=== PATIENT | male | born 1980 | race Caucasian/White ===

== ENCOUNTER 2017-06-22 11:28 | Emergency (ER) | payer OTHER ==
--- NOTE | 2017-06-22 12:17 | ERPHSYRPT ---
- History of Present Illness Time Seen by Provider: 06/22/17 12:08 Source: patient Exam Limitations: no limitations Patient Subjective Stated Complaint: Pt states yesterday he kind of got choked while eating and now he still feels like he has something stuck in his throat. When he swollows he feels it and then he pukes, "like it wont go down because its blocked" Triage Nursing Assessment: Pt alert and oriented x3. skin pink warm and dry. afebrile. bowel sounds present x4. abdomen soft, and tender with palpation in the upper quad Physician History: The patient is a 36-year-old male complaining of the feeling like a piece of his food from yesterday is stuck in his throat. He has poor dentition and doesn 't chew his food thoroughly. He was in a hurry yesterday when eating pork. About mid afternoon around 3 or 4 PM he thinks a piece of pork is stuck somewhere in his esophagus. Since that time when he drinks, within 30 seconds he regurgitates all of his fluid. He hasn't been able to eat anything. He hasn 't taken his medicines today. He denies shortness of breath. His past medical history is significant for depression and likely bipolar disorder. Timing/Duration: abrupt onset Severity: moderate ENT Location: throat (foreign body ) Prearrival Treatment: no prearrival treatment Associated Symptoms: poor fluid intake, difficulty swallowing Allergies/Adverse Reactions: No Known Drug Allergies Allergy (Unverified 06/22/17 11:55) Home Medications: Atenolol 50 mg PO DAILY 06/15/14 [History] Bupropion HCl [Wellbutrin] 150 mg PO BID 06/15/14 [History] Fluoxetine HCl [Prozac] 20 mg PO DAILY 06/15/14 [History] Lisdexamfetamine Dimesylate [Vyvanse] 70 mg PO DAILY 06/15/14 [History] Testosterone [Androgel] 2 puff IH DAILY 06/15/14 [History] Hx Tetanus, Diphtheria Vaccination/Date Given: Yes Hx Influenza Vaccination/Date Given: No Hx Pneumococcal Vaccination/Date Given: No - Review of Systems Constitutional: No Fever, No Chills Eyes: No Symptoms Ears, Nose, & Throat: Other (difficulty swallowing) Respiratory: No Cough, No Dyspnea Cardiac: No Chest Pain, No Edema, No Syncope Abdominal/Gastrointestinal: Other (regurgitation) Genitourinary Symptoms: No Dysuria Musculoskeletal: No Back Pain, No Neck Pain Skin: No Rash Neurological: No Dizziness, No Focal Weakness, No Sensory Changes Psychological: No Symptoms Endocrine: No Symptoms Hematologic/Lymphatic: No Symptoms Immunological/Allergic: No Symptoms All Other Systems: Reviewed and Negative - Past Medical History Pertinent Past Medical History: Yes Neurological History: Seizures ENT History: No Pertinent History Cardiac History: Hypertension Respiratory History: No Pertinent History Endocrine Medical History: No Pertinent History Musculoskeletal History: No Pertinent History GI Medical History: No Pertinent History History: No Pertinent History Psycho-Social History: Anxiety, Attention Deficit Disorder, Depression Male Reproductive Disorders: No Pertinent History Other Medical History: LOW TESTERONE - Past Surgical History Past Surgical History: Yes Neuro Surgical History: No Pertinent History Cardiac: No Pertinent History Respiratory: No Pertinent History Gastrointestinal: No Pertinent History Genitourinary: No Pertinent History Musculoskeletal: No Pertinent History Male Surgical History: No Pertinent History Other Surgical History: ABCESS REMOVED - Social History Smoking Status: Former smoker Exposure to second hand smoke: No Drug Use: none Patient Lives Alone: No - Nursing Vital Signs Nursing Vital Signs: Initial Vital Signs Temperature 97.6 F 06/22/17 11:57 Pulse Rate 107 H 06/22/17 11:57 Respiratory Rate 16 06/22/17 11:57 Blood Pressure 140/90 06/22/17 11:57 O2 Sat by Pulse Oximetry 97 06/22/17 11:57 Pain Scale Pain Intensity 0 - Physical Exam General Appearance: no apparent distress, alert Eye Exam: bilateral eye: PERRL, EOMI Ear Exam: bilateral ear: auricle normal Nasal Exam: normal inspection Throat Exam: pharynx normal, moist mucus membranes, No tonsillar exudate Neck Exam: supple Cardiovascular/Respiratory Exam: normal breath sounds, regular rate/rhythm Abdominal Exam: non-tender, soft Neurologic Exam: alert, oriented x 3, sensation nml, No motor deficits Skin Exam: normal color, warm, dry SpO2 Interpretation: normal SpO2: 97 Oxygen Delivery: Room Air - Radiology Exams Other X-ray Interpretation: Negative (neg soft tissue neck per Dr Lanier) Ordered Tests: Active Orders 24 hr Category Date Time Status IV Insertion STAT Care 06/22/17 12:20 Active NECK SOFT TISSUE Stat Exams 06/22/17 12:33 Completed Medication Summary Discontinued Medications Generic Name Dose Route Start Last Admin Trade Name Marian PRN Reason Stop Dose Admin Glucagon 1 mg 06/22/17 12:21 06/22/17 12:40 Glucagen 1 Mg IV 06/22/17 12:22 1 mg STAT ONE Administration Glucagon Confirm 06/22/17 12:30 Glucagen 1 Mg Administered 06/22/17 12:31 Dose 1 mg .ROUTE .STK-MED ONE - Progress Progress: improved Progress Note: 06/22/17 13:33 After glucagon 1 mg IV, the patient was able to consume a 6 ounce soft drink and crackers without problems. Counseled pt/family regarding: diagnosis - Departure Time of Disposition: 13:34 Departure Disposition: Home Clinical Impression: Esophageal foreign body Condition: Stable Critical Care Time: No Referrals: MICHAEL MOLINA MD [Primary Care Provider] - Additional Instructions: You had an esophageal foreign body that was relieved with glucagon 1 mg by IV in the ER. Try to prevent another food bolus getting stuck in your esophagus by chewing your food thoroughly.
[2017-06-22] MEDS ORDERED: GlucaGen 1 MG IV ONE (12:21)
[2017-06-22] MEDS ORDERED: GlucaGen 1 MG ONE (12:30)
--- NOTE | 2017-06-22 12:44 | XRAY ---
Indication: Foreign body. Vomiting. Comparison: None AP/lateral neck obtained with special attention to the soft tissues negative for radiopaque foreign body.. Supra-and infraglottic airway are patent. Normal epiglottis and cervical spine. Impression: Negative soft tissue neck.
[2017-06-22 13:58] VITALS: BP 142/106; PULSE 95; O2SAT 98
== END 2017-06-22 13:57 | disposition home or self-care (01) ==
LOC: ED 11:28
DX: T18.108A Unspecified foreign body in esophagus causing other injury, initial encounter (principal)
CPT/HCPCS: 36000; 70360; 96374; 99284; J1610

== ENCOUNTER 2020-01-24 22:27 | Observation (INO) | payer OTHER ==
[2020-01-24 23:18] LABS: Absolute Neutrophil Ct (ANC) 7.21 (1.4-6.9); BASOPHIL % 0.3 % (0.0-0.4); Basophil (Absolute #) 0.04 (0-0.4); Eosinophil % 3.5 % (0.00-5.0); Eosinophil (Absolute #) 0.46 (0-0.5); Hematocrit 51.3 % (42-50); Hemoglobin 17.6 gm/dl (12.5-18.0); Lymphocyte (Absolute #) 4.27 (1.0-4.6); Lymphocytes % 32.3 % (24.0-44.0); Mean Cell Volume 95.4 fl (78-100); Mean Corpuscular Hemoglobin 32.7 pg (26-32); Mean Corpuscular Hgb Concent. 34.3 g/dl (32-36); Mean Platelet Volume 10.2 fl (7.5-11.0); Monocyte (Absolute #) 1.26 (0.0-1.3); Monocytes % 9.5 % (0.0-12.0); Neutrophil % 54.4 % (36.0-66.0); Platelet Count 268 K/mm3 (150-450); Red Blood Count 5.38 M/mm3 (4.1-5.6); Red Cell Distribution Width 12.5 % (11.5-14.0); White Blood Count 13.2 K/mm3 (4.0-10.5)
[2020-01-24 23:21] LABS: Appearance CLEAR (CLEAR); Bilirubin NEGATIVE (NEGATIVE); Blood NEGATIVE Ery/ul (0-5); Glucose NEGATIVE (NEGATIVE); Ketones NEGATIVE (NEGATIVE); Leukocyte Esterase NEGATIVE (NEGATIVE); Mucus SLIGHT /HPF (NEGATIVE); Nitrite NEGATIVE (NEGATIVE); Protein,Urine Dip NEGATIVE (Negative); RBC 0-2 /HPF (0-2); Specific Gravity 1.026 (1.005-1.025); Urobilinogen NEGATIVE mg/dL (0-1)
[2020-01-24 23:30] LABS: ALBUMIN 4.8 g/dL (3.5-5.0); ALKALINE PHOSPHATASE 68 U/L (38-126); ANION GAP 13.9 MEQ/L (5-15); BLOOD UREA NITROGEN 14 mg/dL (9-20); CHLORIDE 104 mmol/L (98-107); Carbon Dioxide 25 mmol/L (22-30); Creatinine 1 1.22 mg/dL (0.66-1.25); Glucose 103 mg/dL (74-106); Potassium 4.1 mmol/L (3.5-5.1); SGOT/AST 30 U/L (17-59); SGPT/ALT 52 U/L (0-50); SODIUM 139 mmol/L (137-145); Total Protein 8.1 g/dL (6.3-8.2)
[2020-01-24 23:31] LABS: ACETAMINOPHEN < 10 ug/ml (10-30); ETHYL ALCOHOL < 10 mg/dL (0-10)
[2020-01-24 23:33] LABS: Amphetamine,Urine POSITIVE (NEGATIVE); Barbiturate,Urine NEGATIVE (NEGATIVE); Benzodiazepine,Urine NEGATIVE (NEGATIVE); Cocaine,Urine NEGATIVE (NEGATIVE); Methadone,Urine NEGATIVE (NEGATIVE); Opiate,Urine NEGATIVE (NEGATIVE); PCP,Urine NEGATIVE (NEGATIVE); THC,Urine NEGATIVE (NEGATIVE)
--- NOTE | 2020-01-24 23:49 | ERPHSYRPT ---
- History of Present Illness Time Seen by Provider: 01/24/20 22:40 Source: patient, family Exam Limitations: no limitations Patient Subjective Stated Complaint: pt states that he took 5 adarrel yesterday and tody, pt states that he hears voices, pt states that he has had thoughts of harming in the past, pt states that he cant just take just 1, pt states that he wants to take all his pills because he is afraid they will take them away, pt states that he is to meet with [facility] because Dr. Molina referred him, father states that him and his usually keep the pills locked up, father states that pt found the pills, Triage Nursing Assessment: pt ambulated into the er, pt axo x3, pt is slow to respond, c/o taking to much adderrall, denies pain, denies suicial thoughts, states he hears voices, vitals wnl Physician History: 39 years old male with history of ADD, anxiety, depression, paranoia presented in the ER with father for Adderall overdose. Patient reports he has been taking more than prescribed amount of pills and has taken 5 earlier today because he does not think 1 is enough. He is also worried about the fact that someone will take away meds from him. Father reports they usually keep medications locked and somehow he managed to take them. He does have history of suicidal attempt in the remote past. Patient reported hearing voices and is paranoid about other people talking about him. Patient also reports having suicidal ideations off and on for quite some time but denies any specific plan. He denies any homicidal ideations. Patient report his sleep is not very well and recently he has been placed on Seroquel which seems to be helping. Patient is scheduled to see [facility] as he was referred by Dr. Molina. Timing/Duration: today, gradual onset Severity of Symptoms-Max: moderate Severity of Symptoms-Current: moderate Suicidal thoughts: ingestion Associated Symptoms: impaired concentration, paranoid, suicidal ideation Previous symptoms: same symptoms as today Allergies/Adverse Reactions: No Known Drug Allergies Allergy (Unverified 06/22/17 11:55) Home Medications: Atenolol 50 mg PO DAILY 06/15/14 [History] Dextroamphetamine/Amphetamine [Dextroamp-Amphet ER 20 mg Cap] 20 mg PO DAILY 01/24/20 [History] Phenytoin Sod Extended 100 mg* [Dilantin 100 MG] 200 mg PO BID 01/24/20 [History] Quetiapine Fumarate 50 mg PO HS 01/24/20 [History] Hx Tetanus, Diphtheria Vaccination/Date Given: Yes Hx Influenza Vaccination/Date Given: No Hx Pneumococcal Vaccination/Date Given: No Travel Risk - International Travel Have you traveled outside of the country in past 3 weeks: No - Coronavirus Screening Are you exhibiting any of the following symptoms?: No Close contact with a COVID-19 positive Pt in past 14-21 Days: No - Past Medical History Pertinent Past Medical History: Yes Neurological History: Seizures ENT History: No Pertinent History Cardiac History: Hypertension Respiratory History: No Pertinent History Endocrine Medical History: No Pertinent History Musculoskeletal History: No Pertinent History GI Medical History: No Pertinent History History: No Pertinent History Psycho-Social History: Anxiety, Attention Deficit Disorder, Depression Male Reproductive Disorders: No Pertinent History Other Medical History: LOW TESTERONE - Past Surgical History Past Surgical History: Yes Neuro Surgical History: No Pertinent History Cardiac: No Pertinent History Respiratory: No Pertinent History Gastrointestinal: No Pertinent History Genitourinary: No Pertinent History Musculoskeletal: No Pertinent History Male Surgical History: No Pertinent History Other Surgical History: ABCESS REMOVED - Social History Smoking Status: Former smoker Exposure to second hand smoke: No Drug Use: none Patient Lives Alone: No - Review of Systems Constitutional: No Symptoms Eyes: No Symptoms Ears, Nose, & Throat: No Symptoms Respiratory: No Symptoms Cardiac: No Symptoms Abdominal/Gastrointestinal: No Symptoms Genitourinary Symptoms: No Symptoms Musculoskeletal: No Symptoms Skin: No Symptoms Psychological: Anxiety, Depression, Suicidal Ideations, Emotional Lability, Hallucinations, Mood Changes, No Homicidal Ideations Endocrine: No Symptoms Hematologic/Lymphatic: No Symptoms Immunological/Allergic: No Symptoms - Nursing Vital Signs Nursing Vital Signs: Initial Vital Signs Temperature 98.1 F 01/24/20 22:51 Pulse Rate 88 01/24/20 22:51 Respiratory Rate 24 01/24/20 22:51 Blood Pressure 131/78 01/24/20 22:51 O2 Sat by Pulse Oximetry 97 01/24/20 22:51 Pain Scale Pain Intensity 0 - Physical Exam General Appearance: no apparent distress, alert, anxiety Eyes, Ears, Nose, Throat Exam: normal ENT inspection, pharynx normal Neck Exam: normal inspection, non-tender, supple, full range of motion Respiratory Exam: normal breath sounds, lungs clear Cardiovascular Exam: regular rate/rhythm, normal heart sounds, normal peripheral pulses Gastrointestinal/Abdominal Exam: soft, normal bowel sounds, No tenderness Extremities Exam: normal inspection Neurological Exam: alert, oriented x 3, flat Appearance: appropriate appearance, no memory impairment Behavior/Eye Contact/Speech: alert & cooperative, avoids eye contact Thoughts/Hallucinations: no apparent hallucination, paranoid Skin Exam: normal color SpO2 Interpretation: normal SpO2: 98 O2 Delivery: Room Air - Course Nursing assessment & vital signs reviewed: Yes EKG Interpreted by Me: RATE (99), Sinus Rhythm, NORMAL AXIS, NORMAL QRS Ordered Tests: Active Orders 24 hr Category Date Time Status EKG-ER Only STAT Care 01/24/20 23:00 Active ACETAMINOPHEN Stat Lab 01/24/20 22:50 Completed CBC W DIFF Stat Lab 01/24/20 22:50 Completed CMP Stat Lab 01/24/20 22:50 Completed ETHYL ALCOHOL Stat Lab 01/24/20 22:50 Completed SALICYLATE Stat Lab 01/24/20 22:50 Completed UA W/RFX UR CULTURE Stat Lab 01/24/20 22:50 Completed Urine Triage Profile Stat Lab 01/24/20 22:50 Completed Transfer Order Routine Transfer 01/25/20 Ordered Lab/Rad Data: Laboratory Result Diagrams 01/24/20 22:50 01/24/20 22:50 Laboratory Results 01/24/20 01/24/20 01/24/20 Range/Units 22:50 22:50 22:50 WBC (4.0-10.5) K/mm3 RBC (4.1-5.6) M/mm3 Hgb (12.5-18.0) gm/dl Hct (42-50) % MCV (78-100) fl MCH (26-32) pg MCHC (32-36) g/dl RDW (11.5-14.0) % Plt Count (150-450) K/mm3 MPV (7.5-11.0) fl Gran % (36.0-66.0) % Eos # (Auto) (0-0.5) Absolute Lymphs (auto) (1.0-4.6) Absolute Monos (auto) (0.0-1.3) Lymphocytes % (24.0-44.0) % Monocytes % (0.0-12.0) % Eosinophils % (0.00-5.0) % Basophils % (0.0-0.4) % Absolute Granulocytes (1.4-6.9) Basophils # (0-0.4) Sodium 139 (137-145) mmol/L Potassium 4.1 (3.5-5.1) mmol/L Chloride 104 (98-107) mmol/L Carbon Dioxide 25 (22-30) mmol/L Anion Gap 13.9 (5-15) MEQ/L BUN 14 (9-20) mg/dL Creatinine 1.22 (0.66-1.25) mg/dL Estimated GFR > 60.0 ML/MIN Glucose 103 (74-106) mg/dL Calcium 10.0 (8.4-10.2) mg/dL Total Bilirubin 1.20 (0.2-1.3) mg/dL AST 30 (17-59) U/L ALT 52 H (0-50) U/L Alkaline Phosphatase 68 (38-126) U/L Serum Total Protein 8.1 (6.3-8.2) g/dL Albumin 4.8 (3.5-5.0) g/dL Urine Color YELLOW (YELLOW) Urine Appearance CLEAR (CLEAR) Urine pH 5.0 (5-6) Ur Specific [place] 1.026 (1.005-1.025) Urine Protein NEGATIVE (Negative) Urine Ketones NEGATIVE (NEGATIVE) Urine Blood NEGATIVE (0-5) [place]/ul Urine Nitrite NEGATIVE (NEGATIVE) Urine Bilirubin NEGATIVE (NEGATIVE) Urine Urobilinogen NEGATIVE (0-1) mg/dL Ur Leukocyte Esterase NEGATIVE (NEGATIVE) Urine WBC (Auto) NONE (0-5) /HPF Urine RBC (Auto) 0-2 (0-2) /HPF U Epithel Cells (Auto) NONE (FEW) /HPF Urine Bacteria (Auto) NONE (NEGATIVE) /HPF Urine Mucus (Auto) SLIGHT (NEGATIVE) /HPF Urine Culture Reflexed NO (NO) Urine Glucose NEGATIVE (NEGATIVE) mg/dL Salicylates 1.0 L (2-20) mg/dL Urine Opiates Level NEGATIVE (NEGATIVE) Ur Methadone NEGATIVE (NEGATIVE) Acetaminophen < 10 L (10-30) ug/ml Urine Barbiturates NEGATIVE (NEGATIVE) Ur Phencyclidine (PCP) NEGATIVE (NEGATIVE) Urine Amphetamine POSITIVE (NEGATIVE) U Benzodiazepine Level NEGATIVE (NEGATIVE) Urine Cocaine NEGATIVE (NEGATIVE) Urine Marijuana (THC) NEGATIVE (NEGATIVE) Ethyl Alcohol < 10 (0-10) mg/dL 01/24/20 Range/Units 22:50 WBC 13.2 H (4.0-10.5) K/mm3 RBC 5.38 (4.1-5.6) M/mm3 Hgb 17.6 (12.5-18.0) gm/dl Hct 51.3 H (42-50) % MCV 95.4 (78-100) fl MCH 32.7 H (26-32) pg MCHC 34.3 (32-36) g/dl RDW 12.5 (11.5-14.0) % Plt Count 268 (150-450) K/mm3 MPV 10.2 (7.5-11.0) fl Gran % 54.4 (36.0-66.0) % Eos # (Auto) 0.46 (0-0.5) Absolute Lymphs (auto) 4.27 (1.0-4.6) Absolute Monos (auto) 1.26 (0.0-1.3) Lymphocytes % 32.3 (24.0-44.0) % Monocytes % 9.5 (0.0-12.0) % Eosinophils % 3.5 (0.00-5.0) % Basophils % 0.3 (0.0-0.4) % Absolute Granulocytes 7.21 H (1.4-6.9) Basophils # 0.04 (0-0.4) Sodium (137-145) mmol/L Potassium (3.5-5.1) mmol/L Chloride (98-107) mmol/L Carbon Dioxide (22-30) mmol/L Anion Gap (5-15) MEQ/L BUN (9-20) mg/dL Creatinine (0.66-1.25) mg/dL Estimated GFR ML/MIN Glucose (74-106) mg/dL Calcium (8.4-10.2) mg/dL Total Bilirubin (0.2-1.3) mg/dL AST (17-59) U/L ALT (0-50) U/L Alkaline Phosphatase (38-126) U/L Serum Total Protein (6.3-8.2) g/dL Albumin (3.5-5.0) g/dL Urine Color (YELLOW) Urine Appearance (CLEAR) Urine pH (5-6) Ur Specific [place] (1.005-1.025) Urine Protein (Negative) Urine Ketones (NEGATIVE) Urine Blood (0-5) [place]/ul Urine Nitrite (NEGATIVE) Urine Bilirubin (NEGATIVE) Urine Urobilinogen (0-1) mg/dL Ur Leukocyte Esterase (NEGATIVE) Urine WBC (Auto) (0-5) /HPF Urine RBC (Auto) (0-2) /HPF U Epithel Cells (Auto) (FEW) /HPF Urine Bacteria (Auto) (NEGATIVE) /HPF Urine Mucus (Auto) (NEGATIVE) /HPF Urine Culture Reflexed (NO) Urine Glucose (NEGATIVE) mg/dL Salicylates (2-20) mg/dL Urine Opiates Level (NEGATIVE) Ur Methadone (NEGATIVE) Acetaminophen (10-30) ug/ml Urine Barbiturates (NEGATIVE) Ur Phencyclidine (PCP) (NEGATIVE) Urine Amphetamine (NEGATIVE) U Benzodiazepine Level (NEGATIVE) Urine Cocaine (NEGATIVE) Urine Marijuana (THC) (NEGATIVE) Ethyl Alcohol (0-10) mg/dL - Progress Progress: unchanged Progress Note: 01/25/20 00:10 39 years old is evaluated for drug overdose. Patient is not in any distress, denies any chest pain palpitations or shortness of breath. EKG showed sinus rhythm with no acute ischemic changes. Poison control is called, recommended observation for 10 hours at least after last ingestion. Patient reported that he took last pill around 9 PM tonight. Work-up in the ER is grossly negative. He cannot be medically cleared until 10 hours. I have discussed with Dr. Larkin and patient is being admitted for observation and once medically clear will obtain psych consult. Plan discussed with patient who understand and agrees with it. Discussed with : Delbert Counseled pt/family regarding: lab results, diagnosis - Departure Departure Disposition: Observation Clinical Impression: Paranoia Medication overdose Qualifiers: Encounter type: initial encounter Injury intent: intentional self-harm Qualified Code(s): T50.902A - Poisoning by unspecified drugs, medicaments and biological substances, intentional self-harm, initial encounter Condition: Stable Critical Care Time: No Referrals: MICHAEL MOLINA MD [Primary Care Provider] -
[2020-01-25] MEDS ORDERED: Zofran 4 MG/2 ML VIAL IV PRN (00:58)
[2020-01-25] MEDS ORDERED: TORAdol 30 mg Injection IV PRN (00:58)
[2020-01-25] MEDS ORDERED: TYLENOL 325 MG PO PRN (00:58)
[2020-01-25] MEDS: Sodium Chloride 0.9% 1000 ML 1,000 ML IV SCH ×2 (01:14→10:21)
[2020-01-25 05:51] LABS: Absolute Neutrophil Ct (ANC) 7.09 (1.4-6.9); BASOPHIL % 0.2 % (0.0-0.4); Basophil (Absolute #) 0.03 (0-0.4); Eosinophil % 3.9 % (0.00-5.0); Eosinophil (Absolute #) 0.55 (0-0.5); Hematocrit 47.7 % (42-50); Hemoglobin 16.3 gm/dl (12.5-18.0); Lymphocyte (Absolute #) 5.33 (1.0-4.6); Lymphocytes % 37.7 % (24.0-44.0); Mean Cell Volume 97.3 fl (78-100); Mean Corpuscular Hemoglobin 33.3 pg (26-32); Mean Corpuscular Hgb Concent. 34.2 g/dl (32-36); Mean Platelet Volume 10.1 fl (7.5-11.0); Monocyte (Absolute #) 1.15 (0.0-1.3); Monocytes % 8.1 % (0.0-12.0); Neutrophil % 50.1 % (36.0-66.0); Platelet Count 227 K/mm3 (150-450); Red Cell Distribution Width 12.7 % (11.5-14.0); White Blood Count 14.2 K/mm3 (4.0-10.5)
[2020-01-25 06:19] LABS: ALKALINE PHOSPHATASE 58 U/L (38-126); ANION GAP 11.2 MEQ/L (5-15); BLOOD UREA NITROGEN 14 mg/dL (9-20); CHLORIDE 103 mmol/L (98-107); Calcium 9.3 mg/dL (8.4-10.2); Carbon Dioxide 29 mmol/L (22-30); Creatinine 1 1.26 mg/dL (0.66-1.25); Glucose 94 mg/dL (74-106); Potassium 3.9 mmol/L (3.5-5.1); SGOT/AST 25 U/L (17-59); SGPT/ALT 41 U/L (0-50); SODIUM 139 mmol/L (137-145)
[2020-01-25 06:20] LABS: Slide Review 1 YES
[2020-01-25] MEDS ORDERED: TENORMIN 50 MG PO SCH (11:00)
[2020-01-25] MEDS ORDERED: Dilantin 100 MG PO SCH (11:00)
[2020-01-25 11:53] VITALS: BP 120/71; PULSE 73; O2SAT 98
--- NOTE | 2020-01-25 14:45 | PCM.HP ---
History of Present Illness - Chief Complaint Chief Complaint: Drug overdose, Paranoia History of Present Illness: is a 39 year old male. Medications & Allergies Home Medications: Home Medication List Atenolol 50 mg PO DAILY 06/15/14 [History Confirmed 01/24/20] Dextroamphetamine/Amphetamine [Dextroamp-Amphet ER 20 mg Cap] 20 mg PO DAILY 01/24/20 [History Confirmed 01/24/20] Phenytoin Sod Extended 100 mg* [Dilantin 100 MG] 200 mg PO BID 01/24/20 [History Confirmed 01/24/20] Quetiapine Fumarate 50 mg PO HS 01/24/20 [History Confirmed 01/24/20] Allergies/Adverse Reactions: Allergies Allergy/AdvReac Type Severity Reaction Status Date / Time No Known Drug Allergies Allergy Unverified 06/22/17 11:55 - Past Medical History Past Medical History: Yes Neurological History: Seizures ENT History: No Pertinent History Cardiac History: Hypertension Respiratory History: No Pertinent History Endocrine Medical History: No Pertinent History Musculoskelatal History: No Pertinent History GI Medical History: No Pertinent History History: No Pertinent History Pyscho-Social History: Anxiety, Attention Deficit Disorder, Depression Male Reproductive Disorders: No Pertinent History Comment: LOW TESTOSTERONE - Past Surgical History Past Surgical History: Yes Neuro Surgical History: No Pertinent History Cardiac History: No Pertinent History Respiratory Surgery: No Pertinent History GI Surgical History: No Pertinent History Genitourinary Surgical Hx: No Pertinent History Musculskeletal Surgical Hx: No Pertinent History Male Surgical History: No Pertinent History Other Surgical History: ABCESS REMOVED - Social History Smoking Status: Current some day smoker Exposure to second hand smoke: No Alcohol: Occasionally Drug Use: none - Physical Exam Vital Signs: Vital Signs - 24 hr Temp Pulse Resp BP BP Pulse Ox 01/25/20 11:53 73 16 120/71 98 01/25/20 11:12 82 98/66 01/25/20 07:23 98.0 F 82 16 98/66 97 01/25/20 04:00 98.4 F 61 13 93/57 97 01/25/20 01:20 98.2 F 80 14 122/85 98 01/25/20 00:12 98 01/25/20 00:00 88 18 127/78 99 01/24/20 23:40 83 18 120/80 98 01/24/20 22:51 98.1 F 88 24 131/78 97 Results - Labs Lab/Micro Results: Lab Results-Last 24 Hours 01/24/20 01/24/20 01/24/20 Range/Units 22:50 22:50 22:50 WBC 13.2 H (4.0-10.5) K/mm3 RBC 5.38 (4.1-5.6) M/mm3 Hgb 17.6 (12.5-18.0) gm/dl Hct 51.3 H (42-50) % MCV 95.4 (78-100) fl MCH 32.7 H (26-32) pg MCHC 34.3 (32-36) g/dl RDW 12.5 (11.5-14.0) % Plt Count 268 (150-450) K/mm3 MPV 10.2 (7.5-11.0) fl Gran % 54.4 (36.0-66.0) % Eos # (Auto) 0.46 (0-0.5) Absolute Lymphs (auto) 4.27 (1.0-4.6) Absolute Monos (auto) 1.26 (0.0-1.3) Lymphocytes % 32.3 (24.0-44.0) % Monocytes % 9.5 (0.0-12.0) % Eosinophils % 3.5 (0.00-5.0) % Basophils % 0.3 (0.0-0.4) % Absolute Granulocytes 7.21 H (1.4-6.9) Basophils # 0.04 (0-0.4) Sodium 139 (137-145) mmol/L Potassium 4.1 (3.5-5.1) mmol/L Chloride 104 (98-107) mmol/L Carbon Dioxide 25 (22-30) mmol/L Anion Gap 13.9 (5-15) MEQ/L BUN 14 (9-20) mg/dL Creatinine 1.22 (0.66-1.25) mg/dL Estimated GFR > 60.0 ML/MIN Glucose 103 (74-106) mg/dL Calcium 10.0 (8.4-10.2) mg/dL Total Bilirubin 1.20 (0.2-1.3) mg/dL AST 30 (17-59) U/L ALT 52 H (0-50) U/L Alkaline Phosphatase 68 (38-126) U/L Troponin I (0.000-0.034) ng/mL Serum Total Protein 8.1 (6.3-8.2) g/dL Albumin 4.8 (3.5-5.0) g/dL Urine Color YELLOW (YELLOW) Urine Appearance CLEAR (CLEAR) Urine pH 5.0 (5-6) Ur Specific [place] 1.026 (1.005-1.025) Urine Protein NEGATIVE (Negative) Urine Ketones NEGATIVE (NEGATIVE) Urine Blood NEGATIVE (0-5) [place]/ul Urine Nitrite NEGATIVE (NEGATIVE) Urine Bilirubin NEGATIVE (NEGATIVE) Urine Urobilinogen NEGATIVE (0-1) mg/dL Ur Leukocyte Esterase NEGATIVE (NEGATIVE) Urine WBC (Auto) NONE (0-5) /HPF Urine RBC (Auto) 0-2 (0-2) /HPF U Epithel Cells (Auto) NONE (FEW) /HPF Urine Bacteria (Auto) NONE (NEGATIVE) /HPF Urine Mucus (Auto) SLIGHT (NEGATIVE) /HPF Urine Culture Reflexed NO (NO) Urine Glucose NEGATIVE (NEGATIVE) mg/dL Salicylates 1.0 L (2-20) mg/dL Urine Opiates Level (NEGATIVE) Ur Methadone (NEGATIVE) Acetaminophen < 10 L (10-30) ug/ml Urine Barbiturates (NEGATIVE) Ur Phencyclidine (PCP) (NEGATIVE) Urine Amphetamine (NEGATIVE) U Benzodiazepine Level (NEGATIVE) Urine Cocaine (NEGATIVE) Urine Marijuana (THC) (NEGATIVE) Ethyl Alcohol < 10 (0-10) mg/dL Slides for Path Review 01/24/20 01/25/20 01/25/20 Range/Units 22:50 00:15 03:15 WBC (4.0-10.5) K/mm3 RBC (4.1-5.6) M/mm3 Hgb (12.5-18.0) gm/dl Hct (42-50) % MCV (78-100) fl MCH (26-32) pg MCHC (32-36) g/dl RDW (11.5-14.0) % Plt Count (150-450) K/mm3 MPV (7.5-11.0) fl Gran % (36.0-66.0) % Eos # (Auto) (0-0.5) Absolute Lymphs (auto) (1.0-4.6) Absolute Monos (auto) (0.0-1.3) Lymphocytes % (24.0-44.0) % Monocytes % (0.0-12.0) % Eosinophils % (0.00-5.0) % Basophils % (0.0-0.4) % Absolute Granulocytes (1.4-6.9) Basophils # (0-0.4) Sodium (137-145) mmol/L Potassium (3.5-5.1) mmol/L Chloride (98-107) mmol/L Carbon Dioxide (22-30) mmol/L Anion Gap (5-15) MEQ/L BUN (9-20) mg/dL Creatinine (0.66-1.25) mg/dL Estimated GFR ML/MIN Glucose (74-106) mg/dL Calcium (8.4-10.2) mg/dL Total Bilirubin (0.2-1.3) mg/dL AST (17-59) U/L ALT (0-50) U/L Alkaline Phosphatase (38-126) U/L Troponin I < 0.012 < 0.012 (0.000-0.034) ng/mL Serum Total Protein (6.3-8.2) g/dL Albumin (3.5-5.0) g/dL Urine Color (YELLOW) Urine Appearance (CLEAR) Urine pH (5-6) Ur Specific [place] (1.005-1.025) Urine Protein (Negative) Urine Ketones (NEGATIVE) Urine Blood (0-5) [place]/ul Urine Nitrite (NEGATIVE) Urine Bilirubin (NEGATIVE) Urine Urobilinogen (0-1) mg/dL Ur Leukocyte Esterase (NEGATIVE) Urine WBC (Auto) (0-5) /HPF Urine RBC (Auto) (0-2) /HPF U Epithel Cells (Auto) (FEW) /HPF Urine Bacteria (Auto) (NEGATIVE) /HPF Urine Mucus (Auto) (NEGATIVE) /HPF Urine Culture Reflexed (NO) Urine Glucose (NEGATIVE) mg/dL Salicylates (2-20) mg/dL Urine Opiates Level NEGATIVE (NEGATIVE) Ur Methadone NEGATIVE (NEGATIVE) Acetaminophen (10-30) ug/ml Urine Barbiturates NEGATIVE (NEGATIVE) Ur Phencyclidine (PCP) NEGATIVE (NEGATIVE) Urine Amphetamine POSITIVE (NEGATIVE) U Benzodiazepine Level NEGATIVE (NEGATIVE) Urine Cocaine NEGATIVE (NEGATIVE) Urine Marijuana (THC) NEGATIVE (NEGATIVE) Ethyl Alcohol (0-10) mg/dL Slides for Path Review 01/25/20 01/25/20 Range/Units 05:25 05:25 WBC 14.2 H (4.0-10.5) K/mm3 RBC 4.90 (4.1-5.6) M/mm3 Hgb 16.3 (12.5-18.0) gm/dl Hct 47.7 (42-50) % MCV 97.3 (78-100) fl MCH 33.3 H (26-32) pg MCHC 34.2 (32-36) g/dl RDW 12.7 (11.5-14.0) % Plt Count 227 (150-450) K/mm3 MPV 10.1 (7.5-11.0) fl Gran % 50.1 (36.0-66.0) % Eos # (Auto) 0.55 H (0-0.5) Absolute Lymphs (auto) 5.33 H (1.0-4.6) Absolute Monos (auto) 1.15 (0.0-1.3) Lymphocytes % 37.7 (24.0-44.0) % Monocytes % 8.1 (0.0-12.0) % Eosinophils % 3.9 (0.00-5.0) % Basophils % 0.2 (0.0-0.4) % Absolute Granulocytes 7.09 H (1.4-6.9) Basophils # 0.03 (0-0.4) Sodium 139 (137-145) mmol/L Potassium 3.9 (3.5-5.1) mmol/L Chloride 103 (98-107) mmol/L Carbon Dioxide 29 (22-30) mmol/L Anion Gap 11.2 (5-15) MEQ/L BUN 14 (9-20) mg/dL Creatinine 1.26 H (0.66-1.25) mg/dL Estimated GFR > 60.0 ML/MIN Glucose 94 (74-106) mg/dL Calcium 9.3 (8.4-10.2) mg/dL Total Bilirubin 1.30 (0.2-1.3) mg/dL AST 25 (17-59) U/L ALT 41 (0-50) U/L Alkaline Phosphatase 58 (38-126) U/L Troponin I (0.000-0.034) ng/mL Serum Total Protein 7.0 (6.3-8.2) g/dL Albumin 4.0 (3.5-5.0) g/dL Urine Color (YELLOW) Urine Appearance (CLEAR) Urine pH (5-6) Ur Specific [place] (1.005-1.025) Urine Protein (Negative) Urine Ketones (NEGATIVE) Urine Blood (0-5) [place]/ul Urine Nitrite (NEGATIVE) Urine Bilirubin (NEGATIVE) Urine Urobilinogen (0-1) mg/dL Ur Leukocyte Esterase (NEGATIVE) Urine WBC (Auto) (0-5) /HPF Urine RBC (Auto) (0-2) /HPF U Epithel Cells (Auto) (FEW) /HPF Urine Bacteria (Auto) (NEGATIVE) /HPF Urine Mucus (Auto) (NEGATIVE) /HPF Urine Culture Reflexed (NO) Urine Glucose (NEGATIVE) mg/dL Salicylates (2-20) mg/dL Urine Opiates Level (NEGATIVE) Ur Methadone (NEGATIVE) Acetaminophen (10-30) ug/ml Urine Barbiturates (NEGATIVE) Ur Phencyclidine (PCP) (NEGATIVE) Urine Amphetamine (NEGATIVE) U Benzodiazepine Level (NEGATIVE) Urine Cocaine (NEGATIVE) Urine Marijuana (THC) (NEGATIVE) Ethyl Alcohol (0-10) mg/dL Slides for Path Review YES
--- NOTE | 2020-01-25 15:43 | PCM.SSS ---
History of Present Illness - Chief Complaint Chief Complaint: Drug overdose, Paranoia History of Present Illness: is a 39 year old male seen and examined this am following ER admission for intentional overdose. Patient was a limited historian and was agitated during exam. He reports that he took the adderall because he feels that his normal dose is not helping and so he wanted to take more. Patient denies current thoughts of SI or HI and that his intent was not to harm himself. Patient would not answer question about recreational drugs or hearing voices. Patient reports that he is on other routine medications. He was unsure what he takes the other medications for. He denies any other concerns at this time. - Review of Systems All Other Systems: Unable due to condition Medications & Allergies Home Medications: Home Medication List Atenolol 50 mg PO DAILY 06/15/14 [History Confirmed 01/24/20] Phenytoin Sod Extended 100 mg* [Dilantin 100 MG] 200 mg PO BID 01/24/20 [History Confirmed 01/24/20] Quetiapine Fumarate 50 mg PO HS 01/24/20 [History Confirmed 01/24/20] Allergies/Adverse Reactions: Allergies Allergy/AdvReac Type Severity Reaction Status Date / Time No Known Drug Allergies Allergy Unverified 06/22/17 11:55 - Past Medical History Past Medical History: Yes Neurological History: Seizures ENT History: No Pertinent History Cardiac History: Hypertension Respiratory History: No Pertinent History Endocrine Medical History: No Pertinent History Musculoskelatal History: No Pertinent History GI Medical History: No Pertinent History History: No Pertinent History Pyscho-Social History: Anxiety, Attention Deficit Disorder, Depression Male Reproductive Disorders: No Pertinent History Comment: LOW TESTOSTERONE - Past Surgical History Past Surgical History: Yes Neuro Surgical History: No Pertinent History Cardiac History: No Pertinent History Respiratory Surgery: No Pertinent History GI Surgical History: No Pertinent History Genitourinary Surgical Hx: No Pertinent History Musculskeletal Surgical Hx: No Pertinent History Male Surgical History: No Pertinent History Other Surgical History: ABCESS REMOVED - Social History Smoking Status: Current some day smoker Exposure to second hand smoke: No Alcohol: Occasionally Drug Use: none - Physical Exam Vital Signs: Vital Signs - 24 hr Temp Pulse Resp BP BP Pulse Ox 01/25/20 11:53 73 16 120/71 98 01/25/20 11:12 82 98/66 01/25/20 07:23 98.0 F 82 16 98/66 97 01/25/20 04:00 98.4 F 61 13 93/57 97 01/25/20 01:20 98.2 F 80 14 122/85 98 01/25/20 00:12 98 01/25/20 00:00 88 18 127/78 99 01/24/20 23:40 83 18 120/80 98 01/24/20 22:51 98.1 F 88 24 131/78 97 General Appearance: moderate distress, other (Patient had some repetitive hand motions including combing) Neurologic Exam: alert, agitation, uncooperative (Did not want to answer questions), depressed mood/affect, other (distrustful suspcious paranoid) Eye Exam: eyes nml inspection, No scleral icterus Ears, Nose, Throat Exam: moist mucous membranes Neck Exam: normal inspection Respiratory Exam: normal breath sounds, lungs clear, No respiratory distress, No diminished breath sounds, No wheezing Cardiovascular Exam: regular rate/rhythm, normal heart sounds, No murmur, No friction rub, No gallop Gastrointestinal/Abdomen Exam: soft, normal bowel sounds, No tenderness, No distention Rectal Exam: not done Extremity Exam: No pedal edema, No swelling Skin Exam: normal color, warm, dry, No rash Results - Labs Lab/Micro Results: Lab Results-Last 24 Hours 01/24/20 01/24/20 01/24/20 Range/Units 22:50 22:50 22:50 WBC 13.2 H (4.0-10.5) K/mm3 RBC 5.38 (4.1-5.6) M/mm3 Hgb 17.6 (12.5-18.0) gm/dl Hct 51.3 H (42-50) % MCV 95.4 (78-100) fl MCH 32.7 H (26-32) pg MCHC 34.3 (32-36) g/dl RDW 12.5 (11.5-14.0) % Plt Count 268 (150-450) K/mm3 MPV 10.2 (7.5-11.0) fl Gran % 54.4 (36.0-66.0) % Eos # (Auto) 0.46 (0-0.5) Absolute Lymphs (auto) 4.27 (1.0-4.6) Absolute Monos (auto) 1.26 (0.0-1.3) Lymphocytes % 32.3 (24.0-44.0) % Monocytes % 9.5 (0.0-12.0) % Eosinophils % 3.5 (0.00-5.0) % Basophils % 0.3 (0.0-0.4) % Absolute Granulocytes 7.21 H (1.4-6.9) Basophils # 0.04 (0-0.4) Sodium 139 (137-145) mmol/L Potassium 4.1 (3.5-5.1) mmol/L Chloride 104 (98-107) mmol/L Carbon Dioxide 25 (22-30) mmol/L Anion Gap 13.9 (5-15) MEQ/L BUN 14 (9-20) mg/dL Creatinine 1.22 (0.66-1.25) mg/dL Estimated GFR > 60.0 ML/MIN Glucose 103 (74-106) mg/dL Calcium 10.0 (8.4-10.2) mg/dL Total Bilirubin 1.20 (0.2-1.3) mg/dL AST 30 (17-59) U/L ALT 52 H (0-50) U/L Alkaline Phosphatase 68 (38-126) U/L Troponin I (0.000-0.034) ng/mL Serum Total Protein 8.1 (6.3-8.2) g/dL Albumin 4.8 (3.5-5.0) g/dL Urine Color YELLOW (YELLOW) Urine Appearance CLEAR (CLEAR) Urine pH 5.0 (5-6) Ur Specific [place] 1.026 (1.005-1.025) Urine Protein NEGATIVE (Negative) Urine Ketones NEGATIVE (NEGATIVE) Urine Blood NEGATIVE (0-5) [place]/ul Urine Nitrite NEGATIVE (NEGATIVE) Urine Bilirubin NEGATIVE (NEGATIVE) Urine Urobilinogen NEGATIVE (0-1) mg/dL Ur Leukocyte Esterase NEGATIVE (NEGATIVE) Urine WBC (Auto) NONE (0-5) /HPF Urine RBC (Auto) 0-2 (0-2) /HPF U Epithel Cells (Auto) NONE (FEW) /HPF Urine Bacteria (Auto) NONE (NEGATIVE) /HPF Urine Mucus (Auto) SLIGHT (NEGATIVE) /HPF Urine Culture Reflexed NO (NO) Urine Glucose NEGATIVE (NEGATIVE) mg/dL Salicylates 1.0 L (2-20) mg/dL Urine Opiates Level (NEGATIVE) Ur Methadone (NEGATIVE) Acetaminophen < 10 L (10-30) ug/ml Urine Barbiturates (NEGATIVE) Ur Phencyclidine (PCP) (NEGATIVE) Urine Amphetamine (NEGATIVE) U Benzodiazepine Level (NEGATIVE) Urine Cocaine (NEGATIVE) Urine Marijuana (THC) (NEGATIVE) Ethyl Alcohol < 10 (0-10) mg/dL Slides for Path Review 01/24/20 01/25/20 01/25/20 Range/Units 22:50 00:15 03:15 WBC (4.0-10.5) K/mm3 RBC (4.1-5.6) M/mm3 Hgb (12.5-18.0) gm/dl Hct (42-50) % MCV (78-100) fl MCH (26-32) pg MCHC (32-36) g/dl RDW (11.5-14.0) % Plt Count (150-450) K/mm3 MPV (7.5-11.0) fl Gran % (36.0-66.0) % Eos # (Auto) (0-0.5) Absolute Lymphs (auto) (1.0-4.6) Absolute Monos (auto) (0.0-1.3) Lymphocytes % (24.0-44.0) % Monocytes % (0.0-12.0) % Eosinophils % (0.00-5.0) % Basophils % (0.0-0.4) % Absolute Granulocytes (1.4-6.9) Basophils # (0-0.4) Sodium (137-145) mmol/L Potassium (3.5-5.1) mmol/L Chloride (98-107) mmol/L Carbon Dioxide (22-30) mmol/L Anion Gap (5-15) MEQ/L BUN (9-20) mg/dL Creatinine (0.66-1.25) mg/dL Estimated GFR ML/MIN Glucose (74-106) mg/dL Calcium (8.4-10.2) mg/dL Total Bilirubin (0.2-1.3) mg/dL AST (17-59) U/L ALT (0-50) U/L Alkaline Phosphatase (38-126) U/L Troponin I < 0.012 < 0.012 (0.000-0.034) ng/mL Serum Total Protein (6.3-8.2) g/dL Albumin (3.5-5.0) g/dL Urine Color (YELLOW) Urine Appearance (CLEAR) Urine pH (5-6) Ur Specific [place] (1.005-1.025) Urine Protein (Negative) Urine Ketones (NEGATIVE) Urine Blood (0-5) [place]/ul Urine Nitrite (NEGATIVE) Urine Bilirubin (NEGATIVE) Urine Urobilinogen (0-1) mg/dL Ur Leukocyte Esterase (NEGATIVE) Urine WBC (Auto) (0-5) /HPF Urine RBC (Auto) (0-2) /HPF U Epithel Cells (Auto) (FEW) /HPF Urine Bacteria (Auto) (NEGATIVE) /HPF Urine Mucus (Auto) (NEGATIVE) /HPF Urine Culture Reflexed (NO) Urine Glucose (NEGATIVE) mg/dL Salicylates (2-20) mg/dL Urine Opiates Level NEGATIVE (NEGATIVE) Ur Methadone NEGATIVE (NEGATIVE) Acetaminophen (10-30) ug/ml Urine Barbiturates NEGATIVE (NEGATIVE) Ur Phencyclidine (PCP) NEGATIVE (NEGATIVE) Urine Amphetamine POSITIVE (NEGATIVE) U Benzodiazepine Level NEGATIVE (NEGATIVE) Urine Cocaine NEGATIVE (NEGATIVE) Urine Marijuana (THC) NEGATIVE (NEGATIVE) Ethyl Alcohol (0-10) mg/dL Slides for Path Review 01/25/20 01/25/20 Range/Units 05:25 05:25 WBC 14.2 H (4.0-10.5) K/mm3 RBC 4.90 (4.1-5.6) M/mm3 Hgb 16.3 (12.5-18.0) gm/dl Hct 47.7 (42-50) % MCV 97.3 (78-100) fl MCH 33.3 H (26-32) pg MCHC 34.2 (32-36) g/dl RDW 12.7 (11.5-14.0) % Plt Count 227 (150-450) K/mm3 MPV 10.1 (7.5-11.0) fl Gran % 50.1 (36.0-66.0) % Eos # (Auto) 0.55 H (0-0.5) Absolute Lymphs (auto) 5.33 H (1.0-4.6) Absolute Monos (auto) 1.15 (0.0-1.3) Lymphocytes % 37.7 (24.0-44.0) % Monocytes % 8.1 (0.0-12.0) % Eosinophils % 3.9 (0.00-5.0) % Basophils % 0.2 (0.0-0.4) % Absolute Granulocytes 7.09 H (1.4-6.9) Basophils # 0.03 (0-0.4) Sodium 139 (137-145) mmol/L Potassium 3.9 (3.5-5.1) mmol/L Chloride 103 (98-107) mmol/L Carbon Dioxide 29 (22-30) mmol/L Anion Gap 11.2 (5-15) MEQ/L BUN 14 (9-20) mg/dL Creatinine 1.26 H (0.66-1.25) mg/dL Estimated GFR > 60.0 ML/MIN Glucose 94 (74-106) mg/dL Calcium 9.3 (8.4-10.2) mg/dL Total Bilirubin 1.30 (0.2-1.3) mg/dL AST 25 (17-59) U/L ALT 41 (0-50) U/L Alkaline Phosphatase 58 (38-126) U/L Troponin I (0.000-0.034) ng/mL Serum Total Protein 7.0 (6.3-8.2) g/dL Albumin 4.0 (3.5-5.0) g/dL Urine Color (YELLOW) Urine Appearance (CLEAR) Urine pH (5-6) Ur Specific [place] (1.005-1.025) Urine Protein (Negative) Urine Ketones (NEGATIVE) Urine Blood (0-5) [place]/ul Urine Nitrite (NEGATIVE) Urine Bilirubin (NEGATIVE) Urine Urobilinogen (0-1) mg/dL Ur Leukocyte Esterase (NEGATIVE) Urine WBC (Auto) (0-5) /HPF Urine RBC (Auto) (0-2) /HPF U Epithel Cells (Auto) (FEW) /HPF Urine Bacteria (Auto) (NEGATIVE) /HPF Urine Mucus (Auto) (NEGATIVE) /HPF Urine Culture Reflexed (NO) Urine Glucose (NEGATIVE) mg/dL Salicylates (2-20) mg/dL Urine Opiates Level (NEGATIVE) Ur Methadone (NEGATIVE) Acetaminophen (10-30) ug/ml Urine Barbiturates (NEGATIVE) Ur Phencyclidine (PCP) (NEGATIVE) Urine Amphetamine (NEGATIVE) U Benzodiazepine Level (NEGATIVE) Urine Cocaine (NEGATIVE) Urine Marijuana (THC) (NEGATIVE) Ethyl Alcohol (0-10) mg/dL Slides for Path Review YES Assessment/Plan (1) Intentional drug overdose Status: Acute Assessment & Plan: Patient took more than his prescribed amount of adderall two days in a row. He reports his goal was not to self harm but just because he wanted to. Patient was evaluated by [facility]. He does not meet criteria for inpatient tx as he is not actively suicidal. Poison control recommended 10 hours of observation. Patient had a few lower blood pressures but overall VSS and it was felt he could be discharged home with parental supervision. Code(s): T50.902A - POISONING BY UNSP DRUG/MEDS/BIOL SUBST, SELF-HARM, INIT (2) Current vapor product user on some days Status: Acute Assessment & Plan: Patient had his vapor with him in his bed. Code(s): Z72.89 - OTHER PROBLEMS RELATED TO LIFESTYLE (3) Paranoia Status: Acute Assessment & Plan: Patient did not want to discuss most topics with me including recreational drug use because he did not want to disclose that information to me Code(s): F22 - DELUSIONAL DISORDERS (4) Seizure Status: Acute Assessment & Plan: Hx of seizures. Unsure if patient takes his medications as directed. He is supposed to be on phenytoin. Unsure when last phenytoin level was drawn but it was not evaluted in ER. Patient will need to get repeat per PCP recommendation Hospital Summary - Hospital Course Hospital Course: 39 years old male with history of ADD, anxiety, depression, paranoia presented in the ER with father for Adderall overdose. Patient reports he has been taking more than prescribed amount of pills and has taken 5 earlier today because he does not think 1 is enough. He is also worried about the fact that someone will take away meds from him. Father reports they usually keep medications locked and somehow he managed to take them. He does have history of suicidal attempt in the remote past. Patient reported hearing voices and is paranoid about other people talking about him. Patient also reports having suicidal ideations off and on for quite some time but denies any specific plan. He denies any ho micidal ideations. Patient report his sleep is not very well and recently he has been placed on Seroquel which seems to be helping. Patient is scheduled to see [facility] as he was referred by Dr. Molina. Patient was admitted to ICU for 10 hour observation per Poison Control. He was not very cooperative with exam today and did not want to answer questions. His vital signs were stable and no abnormal symptoms were noted. He was evaluated by telehealth as he was medically cleared. He did not meet criteria for inpatient tx. They recommended discharge home in the custody of his parents and follow up with PCP. Patient will not be discharged on adderall and parents will need to find a new storage system as patient was able to gain access to this medication. He will need a repeat phenytoin level as I am unsure if patient is taking his other medications as directed. - Vitals & Intake/Output Vital Signs: Vital Signs Temperature 98.0 F 01/25/20 07:23 Pulse Rate 73 01/25/20 11:53 Respiratory Rate 16 01/25/20 11:53 Blood Pressure 120/71 01/25/20 11:53 O2 Sat by Pulse Oximetry 98 01/25/20 11:53 Intake & Output: Intake & Output 01/23/20 01/24/20 01/25/20 01/26/20 11:59 11:59 11:59 11:59 Intake Total 580 Balance 580 Weight 97.8 kg - Lab Result Diagrams: 01/25/20 05:25 01/25/20 05:25 Lab Results-Last 24 Hrs: Lab Results-Last 24 Hours 01/24/20 01/24/20 01/24/20 Range/Units 22:50 22:50 22:50 WBC 13.2 H (4.0-10.5) K/mm3 RBC 5.38 (4.1-5.6) M/mm3 Hgb 17.6 (12.5-18.0) gm/dl Hct 51.3 H (42-50) % MCV 95.4 (78-100) fl MCH 32.7 H (26-32) pg MCHC 34.3 (32-36) g/dl RDW 12.5 (11.5-14.0) % Plt Count 268 (150-450) K/mm3 MPV 10.2 (7.5-11.0) fl Gran % 54.4 (36.0-66.0) % Eos # (Auto) 0.46 (0-0.5) Absolute Lymphs (auto) 4.27 (1.0-4.6) Absolute Monos (auto) 1.26 (0.0-1.3) Lymphocytes % 32.3 (24.0-44.0) % Monocytes % 9.5 (0.0-12.0) % Eosinophils % 3.5 (0.00-5.0) % Basophils % 0.3 (0.0-0.4) % Absolute Granulocytes 7.21 H (1.4-6.9) Basophils # 0.04 (0-0.4) Sodium 139 (137-145) mmol/L Potassium 4.1 (3.5-5.1) mmol/L Chloride 104 (98-107) mmol/L Carbon Dioxide 25 (22-30) mmol/L Anion Gap 13.9 (5-15) MEQ/L BUN 14 (9-20) mg/dL Creatinine 1.22 (0.66-1.25) mg/dL Estimated GFR > 60.0 ML/MIN Glucose 103 (74-106) mg/dL Calcium 10.0 (8.4-10.2) mg/dL Total Bilirubin 1.20 (0.2-1.3) mg/dL AST 30 (17-59) U/L ALT 52 H (0-50) U/L Alkaline Phosphatase 68 (38-126) U/L Troponin I (0.000-0.034) ng/mL Serum Total Protein 8.1 (6.3-8.2) g/dL Albumin 4.8 (3.5-5.0) g/dL Urine Color YELLOW (YELLOW) Urine Appearance CLEAR (CLEAR) Urine pH 5.0 (5-6) Ur Specific [place] 1.026 (1.005-1.025) Urine Protein NEGATIVE (Negative) Urine Ketones NEGATIVE (NEGATIVE) Urine Blood NEGATIVE (0-5) [place]/ul Urine Nitrite NEGATIVE (NEGATIVE) Urine Bilirubin NEGATIVE (NEGATIVE) Urine Urobilinogen NEGATIVE (0-1) mg/dL Ur Leukocyte Esterase NEGATIVE (NEGATIVE) Urine WBC (Auto) NONE (0-5) /HPF Urine RBC (Auto) 0-2 (0-2) /HPF U Epithel Cells (Auto) NONE (FEW) /HPF Urine Bacteria (Auto) NONE (NEGATIVE) /HPF Urine Mucus (Auto) SLIGHT (NEGATIVE) /HPF Urine Culture Reflexed NO (NO) Urine Glucose NEGATIVE (NEGATIVE) mg/dL Salicylates 1.0 L (2-20) mg/dL Urine Opiates Level (NEGATIVE) Ur Methadone (NEGATIVE) Acetaminophen < 10 L (10-30) ug/ml Urine Barbiturates (NEGATIVE) Ur Phencyclidine (PCP) (NEGATIVE) Urine Amphetamine (NEGATIVE) U Benzodiazepine Level (NEGATIVE) Urine Cocaine (NEGATIVE) Urine Marijuana (THC) (NEGATIVE) Ethyl Alcohol < 10 (0-10) mg/dL Slides for Path Review 01/24/20 01/25/20 01/25/20 Range/Units 22:50 00:15 03:15 WBC (4.0-10.5) K/mm3 RBC (4.1-5.6) M/mm3 Hgb (12.5-18.0) gm/dl Hct (42-50) % MCV (78-100) fl MCH (26-32) pg MCHC (32-36) g/dl RDW (11.5-14.0) % Plt Count (150-450) K/mm3 MPV (7.5-11.0) fl Gran % (36.0-66.0) % Eos # (Auto) (0-0.5) Absolute Lymphs (auto) (1.0-4.6) Absolute Monos (auto) (0.0-1.3) Lymphocytes % (24.0-44.0) % Monocytes % (0.0-12.0) % Eosinophils % (0.00-5.0) % Basophils % (0.0-0.4) % Absolute Granulocytes (1.4-6.9) Basophils # (0-0.4) Sodium (137-145) mmol/L Potassium (3.5-5.1) mmol/L Chloride (98-107) mmol/L Carbon Dioxide (22-30) mmol/L Anion Gap (5-15) MEQ/L BUN (9-20) mg/dL Creatinine (0.66-1.25) mg/dL Estimated GFR ML/MIN Glucose (74-106) mg/dL Calcium (8.4-10.2) mg/dL Total Bilirubin (0.2-1.3) mg/dL AST (17-59) U/L ALT (0-50) U/L Alkaline Phosphatase (38-126) U/L Troponin I < 0.012 < 0.012 (0.000-0.034) ng/mL Serum Total Protein (6.3-8.2) g/dL Albumin (3.5-5.0) g/dL Urine Color (YELLOW) Urine Appearance (CLEAR) Urine pH (5-6) Ur Specific [place] (1.005-1.025) Urine Protein (Negative) Urine Ketones (NEGATIVE) Urine Blood (0-5) [place]/ul Urine Nitrite (NEGATIVE) Urine Bilirubin (NEGATIVE) Urine Urobilinogen (0-1) mg/dL Ur Leukocyte Esterase (NEGATIVE) Urine WBC (Auto) (0-5) /HPF Urine RBC (Auto) (0-2) /HPF U Epithel Cells (Auto) (FEW) /HPF Urine Bacteria (Auto) (NEGATIVE) /HPF Urine Mucus (Auto) (NEGATIVE) /HPF Urine Culture Reflexed (NO) Urine Glucose (NEGATIVE) mg/dL Salicylates (2-20) mg/dL Urine Opiates Level NEGATIVE (NEGATIVE) Ur Methadone NEGATIVE (NEGATIVE) Acetaminophen (10-30) ug/ml Urine Barbiturates NEGATIVE (NEGATIVE) Ur Phencyclidine (PCP) NEGATIVE (NEGATIVE) Urine Amphetamine POSITIVE (NEGATIVE) U Benzodiazepine Level NEGATIVE (NEGATIVE) Urine Cocaine NEGATIVE (NEGATIVE) Urine Marijuana (THC) NEGATIVE (NEGATIVE) Ethyl Alcohol (0-10) mg/dL Slides for Path Review 01/25/20 01/25/20 Range/Units 05:25 05:25 WBC 14.2 H (4.0-10.5) K/mm3 RBC 4.90 (4.1-5.6) M/mm3 Hgb 16.3 (12.5-18.0) gm/dl Hct 47.7 (42-50) % MCV 97.3 (78-100) fl MCH 33.3 H (26-32) pg MCHC 34.2 (32-36) g/dl RDW 12.7 (11.5-14.0) % Plt Count 227 (150-450) K/mm3 MPV 10.1 (7.5-11.0) fl Gran % 50.1 (36.0-66.0) % Eos # (Auto) 0.55 H (0-0.5) Absolute Lymphs (auto) 5.33 H (1.0-4.6) Absolute Monos (auto) 1.15 (0.0-1.3) Lymphocytes % 37.7 (24.0-44.0) % Monocytes % 8.1 (0.0-12.0) % Eosinophils % 3.9 (0.00-5.0) % Basophils % 0.2 (0.0-0.4) % Absolute Granulocytes 7.09 H (1.4-6.9) Basophils # 0.03 (0-0.4) Sodium 139 (137-145) mmol/L Potassium 3.9 (3.5-5.1) mmol/L Chloride 103 (98-107) mmol/L Carbon Dioxide 29 (22-30) mmol/L Anion Gap 11.2 (5-15) MEQ/L BUN 14 (9-20) mg/dL Creatinine 1.26 H (0.66-1.25) mg/dL Estimated GFR > 60.0 ML/MIN Glucose 94 (74-106) mg/dL Calcium 9.3 (8.4-10.2) mg/dL Total Bilirubin 1.30 (0.2-1.3) mg/dL AST 25 (17-59) U/L ALT 41 (0-50) U/L Alkaline Phosphatase 58 (38-126) U/L Troponin I (0.000-0.034) ng/mL Serum Total Protein 7.0 (6.3-8.2) g/dL Albumin 4.0 (3.5-5.0) g/dL Urine Color (YELLOW) Urine Appearance (CLEAR) Urine pH (5-6) Ur Specific [place] (1.005-1.025) Urine Protein (Negative) Urine Ketones (NEGATIVE) Urine Blood (0-5) [place]/ul Urine Nitrite (NEGATIVE) Urine Bilirubin (NEGATIVE) Urine Urobilinogen (0-1) mg/dL Ur Leukocyte Esterase (NEGATIVE) Urine WBC (Auto) (0-5) /HPF Urine RBC (Auto) (0-2) /HPF U Epithel Cells (Auto) (FEW) /HPF Urine Bacteria (Auto) (NEGATIVE) /HPF Urine Mucus (Auto) (NEGATIVE) /HPF Urine Culture Reflexed (NO) Urine Glucose (NEGATIVE) mg/dL Salicylates (2-20) mg/dL Urine Opiates Level (NEGATIVE) Ur Methadone (NEGATIVE) Acetaminophen (10-30) ug/ml Urine Barbiturates (NEGATIVE) Ur Phencyclidine (PCP) (NEGATIVE) Urine Amphetamine (NEGATIVE) U Benzodiazepine Level (NEGATIVE) Urine Cocaine (NEGATIVE) Urine Marijuana (THC) (NEGATIVE) Ethyl Alcohol (0-10) mg/dL Slides for Path Review YES - Discharge Disposition: Home, Self-Care Condition: Stable Prescriptions: No Action Atenolol 50 mg PO DAILY Phenytoin Sod Extended 100 mg* [Dilantin 100 MG] 200 mg PO BID Quetiapine Fumarate 50 mg PO HS Instructions: Depression, Adult (DC) Follow up with: MICHAEL MOLINA MD [Primary Care Provider] - 1 Week
[2020-01-25] MEDS ORDERED: Seroquel 100 MG PO SCH (22:00)
[2020-01-25] MEDS ORDERED: QUETIAPINE FUMARATE 50 MG PO SCH (22:00)
== END 2020-01-25 16:30 | disposition home or self-care (01) ==
LOC: ED 22:27 → ICU 01-25 00:56 → UNDODISOB 01-25 16:30
PROVIDERS: ADMIT Family Medicine; ATTEND Family Medicine
DX: T43.622A Poisoning by amphetamines, intentional self-harm, initial encounter (principal); F22 Delusional disorders; R56.9 Unspecified convulsions; I10 Essential (primary) hypertension; Z79.899 Other long term (current) drug therapy
CPT/HCPCS: 36000; 36415; 80053; 80307; 81001; 84484; 85025; 90791; 93005; 93268; 96360; 99285; G0378; G0480; Q3014; A9270-GY

== ENCOUNTER 2020-02-14 16:20 | Emergency (ER) | payer OTHER ==
--- NOTE | 2020-02-14 17:14 | ERPHSYRPT ---
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 has been using ice and topical anesthetics for pain control with mild relief. pedal pulses good, skin warm pink and dry, no loss sensation. limited ROM with toes d/t pain. pt denies hitting head and no blood thinners. ambulatory with assistance, not weight bearing on arrival to ED. Physician History: Right foot pain after fall. 2 hours ago. 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 has been using ice and topical anesthetics for pain control with mild relief. Method of Injury: fell, twisted Occurred: just prior to arrival Quality: constant Severity of Pain-Max: moderate Severity of Pain-Current: moderate Lower Extremities Pain: foot: right, ankle: right Modifying Factors: Improves With: cold therapy Associated Symptoms: unable to bear weight, No dizzy, No fainted, No seizure, No snapping sensation, No popping sensation Allergies/Adverse Reactions: No Known Drug Allergies Allergy (Verified 02/14/20 16:42) Home Medications: Phenytoin Sod Extended 100 mg* [Dilantin 100 MG] 200 mg PO BID 01/24/20 [History] Paliperidone Palmitate [Invega Sustenna] 156 mg IM WEEKLY 02/14/20 [History] Prazosin HCl 2 mg PO DAILY 02/14/20 [History] Testosterone 2.5 gm PO DAILY 02/14/20 [History] Hx Tetanus, Diphtheria Vaccination/Date Given: Yes Hx Influenza Vaccination/Date Given: Yes Hx Pneumococcal Vaccination/Date Given: No Immunizations Up to Date: Yes Travel Risk - International Travel Have you traveled outside of the country in past 3 weeks: No - Coronavirus Screening Are you exhibiting any of the following symptoms?: No Close contact with a COVID-19 positive Pt in past 14-21 Days: No - Review of Systems Constitutional: No Symptoms Eyes: No Symptoms Ears, Nose, & Throat: No Symptoms Respiratory: No Symptoms Cardiac: No Symptoms Abdominal/Gastrointestinal: No Symptoms Musculoskeletal: Fall, Joint Pain, Joint Swelling, No Deformity - Past Medical History Pertinent Past Medical History: Yes Neurological History: Seizures ENT History: No Pertinent History Cardiac History: Hypertension Respiratory History: No Pertinent History Endocrine Medical History: No Pertinent History Musculoskeletal History: No Pertinent History GI Medical History: No Pertinent History History: No Pertinent History Psycho-Social History: Anxiety, Attention Deficit Disorder, Depression Male Reproductive Disorders: No Pertinent History Other Medical History: LOW TESTOSTERONE - Past Surgical History Past Surgical History: Yes Neuro Surgical History: No Pertinent History Cardiac: No Pertinent History Respiratory: No Pertinent History Gastrointestinal: No Pertinent History Genitourinary: No Pertinent History Musculoskeletal: No Pertinent History Male Surgical History: No Pertinent History Other Surgical History: ABCESS REMOVED - Social History Smoking Status: Current some day smoker Exposure to second hand smoke: No Drug Use: none Patient Lives Alone: No - Nursing Vital Signs Nursing Vital Signs: Initial Vital Signs Temperature 98.7 F 02/14/20 16:43 Pulse Rate 105 H 02/14/20 16:43 Respiratory Rate 20 02/14/20 16:43 Blood Pressure 157/95 02/14/20 16:43 O2 Sat by Pulse Oximetry 99 02/14/20 16:43 Pain Scale Pain Intensity 2 - Physical Exam General Appearance: no apparent distress Eyes, Ears, Nose, Throat Exam: normal ENT inspection Neck Exam: normal inspection Back Exam: normal inspection Hips Exam: bilateral: non-tender Legs Exam: bilateral leg: non-tender Knees Exam: bilateral knee: non-tender Ankle Exam: right ankle: limited range of motion, pain, soft tissue tenderness Foot Exam: right foot: limited range of motion, pain, soft tissue tenderness, swelling SpO2: 99 - Course Nursing assessment & vital signs reviewed: Yes - Radiology Exams Right Ankle X-ray Interpretation: Reviewed by me Right Foot X-ray Interpretation: Reviewed by me Ordered Tests: Active Orders 24 hr Category Date Time Status ANKLE (3 VIEWS) Stat Exams 02/14/20 17:10 Ordered FOOT (MINIMUM 3 VIEWS) Stat Exams 02/14/20 17:11 Ordered - Progress Progress: improved, pain not gone completely Counseled pt/family regarding: diagnosis, need for follow-up, rad results - Departure Departure Disposition: Home Clinical Impression: Sprain of right foot Qualifiers: Encounter type: initial encounter Qualified Code(s): S93.601A - Unspecified s prain of right foot, initial encounter Condition: Stable Critical Care Time: No Referrals: MICHAEL MOLINA MD [Primary Care Provider] - Instructions: Contusion (DC), Foot Sprain (DC) Additional Instructions: Discharge/Care Plan MONICA FREEDMAN was seen on 02/14/20 in the Emergency Room. The patient was counseled regarding Diagnosis,Lab results, Imaging studies, need for follow up and when to return to the Emergency Room. Prescriptions given: Discharge Note I have spoken with the patient and/or caregivers. I have explained the patient's condition, diagnosis and treatment plan based on the information available to me at this time. I have answered the patient's and/or caregiver's questions and addressed any concerns. The patient and/or caregivers have as good understanding of the patient's diagnosis, condition and treatment plan as can be expected at this point. The vital signs have been stable. The patient's condition is stable and appropriate for discharge from the emergency department. The patient will pursue further outpatient evaluation with the primary care physician or other designated or consulting physician as outlined in the discharge instructions. The patient and/or caregivers are agreeable to this plan of care and follow-up instructions have been explained in detail. The patient and/or caregivers have received these instruction. The patient/and or caregivers are aware that any significant change in condition or worsening of symptoms should prompt an immediate return to this or the closest emergency department or call 911. MONICA FREEDMAN was seen on 02/14/20 n the Emergency Room. At that time you were treated for an emergent condition, during your visit Laboratory, Radiology and/or other procedures may have been ordered. It is very important that you follow-up with your Primary Care Physician MICHAEL MOLINA within the next 24- 48 hours to review your Emergency Room visit and the final results of testing that was ordered. Some test results such as Urine Cultures, Blood Cultures, and other cultures if ordered will not be finalized for 24-48 hours. If you do not have a Primary Care Provider please call the medical records department at [phone] ext [phone] to obtain a copy of your results or you may sign into our patient portal to obtain these results by visiting us @ [email or web address] and completing the following steps: 1. Click on the Patient Portal link 2. Click the Patient Self Enrollment Link to complete the enrollment form and entering your 3. Once the enrollment form is completed you will receive an email with a temporary ID and password at the email address you provided. 4. Next choose a user name and password. Your user name must be at least 4 characters long and your password must be at least 4 characters long. 5. Choose a security question from the list and provide your answer to the question. If you already have signed into the Health Portal you may access your Health Care Information 29/01 by the following steps: 1. Login to our website @ [email or web address] 2. Enter your original user name and password. FAQS The [facility] Health Portal is an online tool that contains your Lab Results, Radiology Reports, Visit History, Discharge Instructions and Health Summary Lab and Radiology Results will not be available for 72 hours on the portal. The Portal is a secure site, passwords are encryted and URLs are re-written so they cannot be copied and pasted. You and authorized family members are the only ones who can access your Portal. Also there is a timeout feature that protects your information if you leave the Portal page open. If you have technical difficulty please use the Contact Us link on the page this will allow you to submit any questions you have regarding the Portal or you may contact the Medical Record Department at [phone]. Prescriptions: Naproxen 375 mg [Naprosyn 375 mg] 375 mg PO Q8H #30 tablet
[2020-02-14 17:56] VITALS: BP 127/83; PULSE 87; O2SAT 98
--- NOTE | 2020-02-14 19:41 | XRAY ---
Indication: Pain following fall. Comparison: None 3 view right ankle demonstrates mild anterolateral soft tissue swelling. No other bony, articular, or soft tissue abnormalities.
--- NOTE | 2020-02-14 19:47 | XRAY ---
Indication: Pain following fall. Comparison: None 3 nonweightbearing views right foot demonstrates nondisplaced 5th metatarsal base fracture with mild soft tissue swelling. No other bony, articular, or soft tissue abnormalities. Comment: Fracture not reported by interpreting ER clinician. Telephone report was given to Dr. Gonzales in the ER at 1941 hrs. on February 14, 2020.
== END 2020-02-14 17:56 | disposition home or self-care (01) ==
LOC: ED 16:20
DX: S93.601A Unspecified sprain of right foot, initial encounter (principal); M25.571 Pain in right ankle and joints of right foot; X50.1XXA Overexertion from prolonged static or awkward postures, initial encounter; Y93.9 Activity, unspecified; Y92.9 Unspecified place or not applicable; W17.89XA Other fall from one level to another, initial encounter; Y99.9 Unspecified external cause status
CPT/HCPCS: 73610; 73630; 99283

== ENCOUNTER 2023-06-25 10:50 | Day surgery (SDC) | payer OTHER ==
--- NOTE | 2023-06-25 10:30 | HP ---
DATE OF SURGERY: 06/25/2023 HISTORY OF PRESENT ILLNESS: The patient is a 42-year-old had some lower esophagus dysphagia mainly with solids over a year. No prior upper endoscopy. Family history negative for esophageal cancer. The patient is a former smoker. PAST MEDICAL HISTORY: Depression. Hypertension. PAST SURGICAL HISTORY: Oral surgery as a child not sure if tonsillar abscess or not as the patient is unclear when telling history. MEDICATIONS: Testosterone, lisdexamfetamine, propranolol, bupropion, Invega Sustenna. ALLERGIES: NKDA. FAMILY HISTORY: Negative in regards to this problem. SOCIAL HISTORY: Former smoker. No alcohol use. REVIEW OF SYSTEMS: Twelve systems reviewed. No chest pain or palpitations. Other systems negative or noncontributory as above and per preadmission questionnaire. PHYSICAL EXAMINATION: Height 5'11". BMI 32.4. GENERAL: No acute distress. HEENT: Sclerae nonicteric. EOMI. Oral mucous membranes moist. NECK: No JVD. CHEST: Equal excursion, nonlabored breathing. CVS: Regular rate and rhythm. ABDOMEN: Soft. No peritoneal signs. EXTREMITIES: No cyanosis or edema. NEURO: Alert, oriented, moving extremities symmetrically. PSYCH: Appropriate mood and affect. SKIN: Dry. IMPRESSION: Dysphagia. I recommend EGD, possible biopsy possible dilatation. Risk of bleeding or infection, risk of bowel injury or perforation possibly requiring further procedure, transfer for stent placement, possible no improvement in swallowing possibly requiring other procedures, dilation or referrals. Risk of possible no narrowing to dilate or possible neurologic or functional problem that dilatation may not benefit. If dilatation is performed and improves swallowing might need repeated again down the road. The patient agrees to proceed. Otherwise, continue medications for hypertension and tremors. Will schedule outpatient EGD possible biopsy possible dilatation under MAC anesthesia.
[2023-06-25 11:12] VITALS: RESP 18
[2023-06-25] MEDS ORDERED: Lactated Ringers 1,000 ML IV ONE (11:21)
[2023-06-25] MEDS ORDERED: Lactated Ringers 1,000 ML IV SCH (12:00)
[2023-06-25] MEDS ORDERED: Xylocaine-Mpf 2% 5 Ml Vial ONE (13:04)
[2023-06-25] MEDS ORDERED: DIPRIVAN 200 MG/20 ML IV ONE ×2 (13:04→13:20)
[2023-06-25 14:15] VITALS: BP 126/89; PULSE 74; TEMP 98.3; O2SAT 98
--- NOTE | 2023-06-26 11:32 | OP ---
SURGERY DATE/TIME: 06/25/2023 1305 PREOPERATIVE DIAGNOSIS: Dysphagia lower esophagus. POSTOPERATIVE DIAGNOSES: 1) Very short segment of esophagitis distal esophagus with esophageal narrowing. 2) Mild gastric erythema. 3) ASA Class II. PROCEDURES: 1) EGD with cold biopsy of antrum for Helicobacter pylori. 2) Cold biopsy distal esophagus to mid esophagus. 3) Distal esophageal balloon dilatation (size 20 balloon dilator). SURGEON: Dr. Edson Fitzgerald. ANESTHESIA: MAC. ESTIMATED BLOOD LOSS: Minimal. INDICATIONS: As noted above. Risks and benefits explained in detail and not limited to and consent obtained. DESCRIPTION OF PROCEDURE AND FINDINGS: The patient is taken to the endoscopy room. MAC anesthesia introduced. After official time out and no disagreement with planned procedure, a bite block positioned. Video gastroscope easily passed down the esophagus to distal esophagus. The gastroesophageal junction is about 40 cm. A little bit of short segment of 2 to 3 mm of short segment of distal esophagitis associated with a little bit of narrowing where he was having symptoms. It was felt he would benefit from dilatation given his symptoms of dysphagia there. The scope was passed through the patent pylorus to the junction of the third and fourth portion of the duodenum. Duodenum grossly unremarkable. No signs of any ulcers or lesions. Scope pulled back in the stomach. He had some mild gastric erythema, minimal to mild gastritis. Cold biopsy taken to evaluate for Helicobacter pylori. Good hemostasis noted. On retroflex gastroesophageal junction snug against the scope. There was no sign of any hiatal hernia. The scope is straightened. Gastroesophageal junction 40 cm. Multiple cold biopsies taken of distal esophagitis. Good hemostasis noted. The remainder of the esophagus fairly unremarkable. Given her dysphagia component, cold biopsy taken in mid esophagus to evaluate for eosinophilic esophagitis. Good hemostasis noted. There were no signs of any masses or mucosal lesions. The scope is passed back down into the stomach. It was felt he would benefit from balloon dilatation distal esophageal narrowed area where he had his symptoms. A 20 balloon catheter inserted in the stomach and then pulled back to the distal narrowed area in distal esophagus and carefully inflated size 19 inflated for 30 seconds and then moved up to size 20 balloon dilator and left inflated for 2 minutes. It was then released and the balloon catheter is withdrawn. There is some minimal abrasions from dilatation. The area seemed to be more widely patent. There is no evidence of any full thickness issues or injury secondary to dilatation. The scope is withdrawn. The patient tolerated the procedure well with no immediate complications. I will go out to look for family out in the waiting area.
== END 2023-06-25 14:22 | disposition home or self-care (01) ==
LOC: SDC 10:50
PROVIDERS: ATTEND Surgery
DX: K29.70 Gastritis, unspecified, without bleeding (principal); R13.10 Dysphagia, unspecified; K20.90 Esophagitis, unspecified without bleeding; K22.2 Esophageal obstruction; K31.89 Other diseases of stomach and duodenum
CPT/HCPCS: C1726; J2704

== ENCOUNTER 2025-04-06 10:29 | Day surgery (SDC) | payer OTHER ==
--- NOTE | 2025-04-06 08:41 | HP ---
HISTORY OF PRESENT ILLNESS: This 44-year-old had some rectal bleeding felt secondary to internal hemorrhoids. Family history negative for colon cancer. PAST MEDICAL HISTORY: Hypertension, history schizophrenia, seizure disorder, depression, hyperlipidemia. HOME MEDICATIONS: Vyvanse, atenolol, fenofibrate, testosterone, vilazodone, and Wellbutrin. ALLERGIES: No known drug allergies. PAST SURGICAL HISTORY: He had EGD, he had tonsillectomy and adenoidectomy in the past. SOCIAL HISTORY: Former smoker. No alcohol abuse. FAMILY HISTORY: Breast cancer and diabetes. REVIEW OF SYSTEMS: Twelve systems reviewed. No chest pain or palpitations. All other systems negative or noncontributory as above and per preadmission questionnaire. PHYSICAL EXAMINATION: GENERAL: No acute distress. VITAL SIGNS: Height 5 feet 11 inches. BMI 36.96. HEENT: Sclerae anicteric. NECK: No JVD. CARDIOVASCULAR: Regular rate and rhythm. RESPIRATORY: Clear, nonlabored breathing. ABDOMEN: Soft. RECTAL: Deferred until time of endoscopy exam. SKIN: Dry. EXTREMITIES: No cyanosis or edema. NEUROLOGIC: Alert and oriented. Moving all extremities symmetrically. PSYCHIATRIC: Appropriate mood and affect. ASSESSMENT: Rectal bleeding. Options were discussed. Needs colonoscopy. Options of possible internal hemorrhoid banding of large internal hemorrhoids noted. Understands the importance of avoiding straining, avoid constipation, titrate high fiber diet or Metamucil to soft bulky stools to minimize any hemorrhoid issues or progression. Explained the risks, but not limited to, bleeding, infection; risk of bowel injury or perforation possibly requiring other procedure; risk of missed diagnosis; incomplete exam possibly requiring barium enema; risk of anesthesia, sedation; risk of bowel prep; risk of recurrent bleeding or progression of hemorrhoidal disease possibly requiring another procedure or referrals; minimal risk of pelvic sepsis not limited to. He understands and agrees with the plan. PLAN: We will proceed as outpatient, MAC anesthesia, colonoscopy with possible internal hemorrhoid banding. Otherwise, continue medications for depression, hypertension, schizophrenia, and hyperlipidemia.
[2025-04-06] MEDS: Lactated Ringers 1,000 ML IV SCH (10:50)
[2025-04-06] MEDS ORDERED: propofoL IV ONE ×3 (13:26→13:50)
[2025-04-06] MEDS ORDERED: Versed 2 MG/2 ML Injection ONE (13:26)
[2025-04-06 14:45] VITALS: BP 105/61; PULSE 74; RESP 17; TEMP 97.7; O2SAT 100
--- NOTE | 2025-04-07 10:54 | OP ---
SURGERY DATE/TIME: 04/06/2025 7973-7010 PREOPERATIVE DIAGNOSIS: Rectal bleeding. POSTOPERATIVE DIAGNOSES: 1) Transverse colon polyps x2. 2) ASA class 3. 3) Diverticulosis. 4) Fair, limited bowel prep. 5) Grade 1 internal hemorrhoids (too small to consider banding at this time). PROCEDURE: 1) Colonoscopy to cecum, hot snare polypectomy of 7 to 8 mm polyp transverse colon. 2) Hot biopsy polypectomy, piecemeal polypectomy of 4 cm transverse colon second polyp removed with hot biopsy piecemeal fashion. SURGEON: Ralf Fitzgerald MD ANESTHESIA: MAC. ESTIMATED BLOOD LOSS: Minimal. INDICATIONS: Consent obtained. DESCRIPTION OF PROCEDURE AND FINDINGS: Patient taken to the endoscopy room. MAC anesthesia induced. After official time-out and no disagreement with planned procedure, digital rectal exam did not reveal any external hemorrhoids or any palpable masses. Videocolonoscope was inserted and passed up through a tortuous sigmoid, descending, transverse, and ascending colon around slightly tortuous colon, passed around to the cecum. Appendiceal orifice and valve well visualized, photo documented. Prep overall was fair. A moderate amount of liquidy, foamy stool throughout the colon was suction irrigated as clear as possible, did limit exam for very small lesions. Scope was slowly, carefully withdrawn over the next 12 minutes, stopping in the transverse colon, removing a 4 mm polyp with hot biopsy polypectomy, brief burst of cautery in a piecemeal fashion. There was scant ooze at the site, appeared to have adequate hemostasis. Patient had a lot of belly breathing and problems with extreme motion of abdominal wall and eventually just a little bit further downstream in the transverse colon. In the mid transverse colon was a 7 or 8 mm polyp removed with hot snare polypectomy and brief burst of cautery. Because of the belly and being it was difficult to just suction through. It was grasped with a grasper and pulled up into the suction channel and then passed off. Scope was carefully withdrawn. There was some small diverticula in the left colon, mild diverticulosis. Otherwise, scope pulled back in the rectum. On retroflex, he had some minimal grade 1 internal hemorrhoids. On inspection, they did not appear to be large enough to even put in the half obando retractors in, the hemorrhoid did not appear to be large enough to warrant any banding at this time. The scope was withdrawn. The rectal retractor was withdrawn. There was no family to discuss any findings with out in the waiting area.
== END 2025-04-06 14:50 | disposition home or self-care (01) ==
LOC: SDC 10:29
PROVIDERS: ATTEND Surgery
DX: D12.3 Benign neoplasm of transverse colon (principal); K62.5 Hemorrhage of anus and rectum; K57.30 Diverticulosis of large intestine without perforation or abscess without bleeding; K64.8 Other hemorrhoids